=== PATIENT | female | born 1990 | race Caucasian/White ===

== ENCOUNTER 2021-12-13 15:21 | Emergency (ER) | payer MEDICAID ==
[~2021-12-13] VITALS: Ht 165.1 cm; Wt 86.4 kg
[2021-12-13] MEDS ORDERED: ketorolac trometh. 30mg/ml inj. IM ONE (21:40)
[2021-12-13 22:00] VITALS: BP 128/83
[2021-12-13] MEDS ORDERED: NAPR-996 PO (22:27)
== END 2021-12-13 22:50 | disposition home or self-care (01) ==
LOC: ER 15:22
DX: M94.0 Chondrocostal junction syndrome [Tietze] (principal); Z88.1 Allergy status to other antibiotic agents; Z88.2 Allergy status to sulfonamides; Z88.8 Allergy status to other drugs, medicaments and biological substances
CPT/HCPCS: 71046; 93005; 96372; 99283; J1885